=== PATIENT | female | born 1965 | race African-American/Black ===

== ENCOUNTER 2021-07-28 09:39 | Day surgery (SDC) | payer BC ==
[2021-07-28] MEDS ORDERED: Lidocaine 1% MPF 2 ML VIAL ONE (10:21)
[2021-07-28] MEDS ORDERED: PROPOFOL 200 MG/20 ML VIAL ONE (11:12)
[2021-07-28] MEDS ORDERED: Lidocaine 1% PF 5 ML VIAL ONE (11:12)
== END 2021-07-28 13:05 | disposition home or self-care (01) ==
LOC: SDC 09:39
PROVIDERS: ATTEND Internal Medicine Gastroenterology
PROC: 0DJD8ZZ Inspection of Lower Intestinal Tract, Via Natural or Artificial Opening Endoscopic (ICD-10-PCS; principal; 2021-07-28)
PROC: 0DB78ZX Excision of Stomach, Pylorus, Via Natural or Artificial Opening Endoscopic, Diagnostic (ICD-10-PCS; principal; 2021-07-28)
DX: K29.50 Unspecified chronic gastritis without bleeding (principal); B96.81 Helicobacter pylori [H. pylori] as the cause of diseases classified elsewhere; K31.89 Other diseases of stomach and duodenum; K57.30 Diverticulosis of large intestine without perforation or abscess without bleeding; K25.9 Gastric ulcer, unspecified as acute or chronic, without hemorrhage or perforation; R63.0 Anorexia; R63.4 Abnormal weight loss; Z68.29 Body mass index [BMI] 29.0-29.9, adult; I10 Essential (primary) hypertension; Z87.891 Personal history of nicotine dependence; Z79.899 Other long term (current) drug therapy; Z88.0 Allergy status to penicillin; Z88.5 Allergy status to narcotic agent
CPT/HCPCS: 88305; 88342; J2704